=== PATIENT | male | born 1990 | race Caucasian/White ===

== ENCOUNTER 2024-08-01 17:59 | Emergency (ER) | payer OTHER, SELFPAY ==
[2024-08-01 18:11] VITALS: BP 130/67
[2024-08-01 18:38] LABS: % Basophils 0.2 % (0-2); % Immature Granulocytes 0.4 % (0-0.5); % Lymphocytes 6.5 % (20.5-51.1); % Monocytes 4.1 % (1.7-9.3); % Neutrophils 88.8 % (42.2-75.2); Absolute Lymphocytes 0.7 10^3/uL (1.2-3.4); Absolute Monocytes 0.5 10^3/uL (0.1-0.6); Absolute Neutrophils 9.8 10^3/uL (1.4-6.5); Hematocrit 40.5 % (39.0-52.0); Hemoglobin 14.9 g/dL (13.0-18.0); Mean Corp Hgb Conc. 36.8 g/dL (33.0-37.0); Mean Corpuscular Hgb 30.7 pg (27.0-31.0); Mean Corpuscular Volume 83.3 fL (80.0-94.0); Mean Platelet Volume 10.3 fL (7.4-10.4); Nucleated Red Blood Cells % 0 % (-); Platelet Count 152 10^3/uL (130-400); Red Blood Cell Count 4.86 10^6/uL (4.70-6.10); Red Cell Dist. Width 13.2 % (11.5-14.5)
[2024-08-01 18:43] LABS: ALT (SGPT) 30 U/L (0-50); AST (SGOT) 35 U/L (17-59); Albumin 5.1 g/dl (3.5-5.0); Alkaline Phosphatase 62 U/L (38-126); Blood Urea Nitrogen 14 mg/dl (9-20); Calcium 9.4 mg/dl (8.4-10.2); Carbon Dioxide 19 mmol/L (22-30); Chloride 106 mmol/L (98-107); Glucose 171 mg/dl (70-99); Potassium 3.5 mmol/L (3.5-5.1); Sodium 135 mmol/L (135-145); Total Bilirubin 1.1 mg/dl (0.2-1.3); Total Protein 7.4 g/dl (6.3-8.2); eGFR > 60.00
[2024-08-01 18:55] LABS: COVID-19 Antigen Negative (Negative)
[2024-08-01 21:44] VITALS: BP 137/87
[2024-08-01] MEDS: NSS 1000 IV (21:49)
[2024-08-01] MEDS: TYLENOL 1000 MG PO (21:49)
--- NOTE | 2024-08-01 22:43 | ED.GENMED ---
History of Present Illness
General
Chief Complaint: Fever
Time Seen by Provider: 08/01/24 21:53
History of Present Illness
History of Present Illness:
34-year-old male without any significant past medical history presenting to the emergency department for fever, body aches, nausea and vomiting. Patient reports symptoms for the past 3 days. Notes that his son was previously sick at home. He has
been taking OTC medications for his fever, last had medication around 3 PM. Denies any associate abdominal pain. Has had a dry cough. Denies any associated chest pain. Denies changes in stool. Denies additional acute medical complaints
Phy Exam
Physical Exam
Physical Exam:
General: Well-appearing, no clinical signs of dehydration, nontoxic and in no acute distress
HEENT: protecting airway
Neck: appears supple
CV: Normal heart rate, regular rhythm
Resp: No accessory muscle use, no increased work of breathing, lungs clear to auscultation bilaterally
Abd: Soft and non-distended, no tenderness to palpation
Extremities: No deformities, no swelling
Neuro: alert, no focal neurologic deficit
: deferred
Rectal: deferred
Psych: Normal affect
Skin: Intact
Sepsis
Sepsis Screening
Sepsis Assessment: Sepsis Ruled Out
Sepsis Screen
Sepsis Screen: Sepsis Ruled Out
Date: 08/02/24
Time: 03:40
Course
Orders/Labs/Results
Orders:
Orders
08/01/24 18:22
COVID-19 Antigen Urgent
Source: Nasal Swab
Complete Blood Count/With Diff Urgent
Comprehensive Metabolic Panel Urgent
Influenza A+B Rapid Molecular Urgent
KARON Source: Nasal Swab
Specimen Description:
08/01/24 21:47
0.9% Sodium Chloride 1000 ml [Nss] 1,000 ml IV BOLUS
Acetaminophen [Tylenol] 500 mg .[facility]TE [facility]
08/01/24 21:48
Acetaminophen [Tylenol] 1,000 mg PO NOW STA
08/01/24 22:29
Ketorolac [Toradol] 15 mg IV NOW STA
08/01/24 22:30
CR Chest - 2 Views Urgent
Comment:
Reason For Exam: cough and fever
08/01/24 22:31
Add On- LAB Urgent
Tests Added?: RSV
08/01/24 22:48
Respiratory Syncytial Virus Urgent
KARON Source: [employer]
Specimen Description:
08/02/24 00:24
Doxycycline [Vibramycin] 100 mg PO NOW STA
Abnormal Lab Results
08/01/24
18:22
WBC 11.0 H 10^3/uL
(4.8-10.8)
Absolute Neuts (auto) 9.8 H 10^3/uL
(1.4-6.5)
Absolute Lymphs (auto) 0.7 L 10^3/uL
(1.2-3.4)
Neutrophils % 88.8 H %
(42.2-75.2)
Lymphocytes % 6.5 L %
(20.5-51.1)
Carbon Dioxide 19 L mmol/L
(22-30)
Glucose 171 H mg/dl
(70-99)
Albumin 5.1 H g/dl
(3.5-5.0)
08/01/24 18:22
08/01/24 18:22
Vital Signs
Initial and Last Documented VS:
Initial Vital Signs
Temp Pulse Resp BP Pulse Ox
102.8 F H 93 18 130/67 97
08/01/24 18:11 08/01/24 18:11 08/01/24 18:11 08/01/24 18:11 08/01/24 18:11
Last Documented Vital Signs
Temp Pulse Resp BP Pulse Ox
99.8 F 82 17 137/87 97
08/01/24 23:54 08/01/24 23:54 08/01/24 21:46 08/01/24 21:44 08/01/24 23:54
MDM/Problems Addressed
MDM/Problems Addressed:
34-year-old male presenting for fever, nausea, vomiting, body aches. Vital signs on arrival significant for fever.
On exam patient is resting comfortably, no acute distress or discomfort. Patient given Tylenol upon arrival for fever. Patient with active dry cough. Ultimately suspect viral syndrome versus pneumonia. Again well-appearing with lower suspicion
for sepsis. Likely source of infection is patient's son who notes that he was diagnosed with croup. Labs obtained, mild leukocytosis. Will plan for chest x-ray imaging. Negative flu and COVID. Will add on RSV. Treating therapeutically with IV
fluids and Toradol. Will reassess movement. No present respiratory distress, protecting airway.
00:20 -RSV negative. Fever has appropriately reduced. Chest x-ray shows concern for right lower lobe pneumonia. Will start patient on doxycycline for suspected community-acquired. Otherwise feel stable for discharge, hemodynamically stable.
Will provide prescription for antibiotic and steroid. Strict return precautions communicated and patient verbalized understanding
*Critical Care Note
Total Time (30-74mins, 75-104mins- exclusive of procedures): Not Applicable
ED Attending Note
-
Portions of this chart may have been created with voice recognition software.� Occasional wrong word or��sound alike� substitutions may have occurred due to the inherent limitations of voice recognition software.
Discharge Plan
Departure
Patient Disposition: Home (Routine Discharge)
Date of Disposition: 08/02/24
Time of Disposition: 00:29
Patient with high blood pressure during this ER visit?: No
Condition: Good
Discharge Problem:
Community acquired pneumonia, Cough
Instructions: Community-acquired pneumonia in adults, Fever, Adult (DC)
Prescriptions:
New
doxycycline hyclate 100 mg capsule
100 mg PO BID Qty: 14 0RF
methylprednisolone [Medrol (Luis Eduardo)] 4 mg tablets,dose pack
See Rx Instructions .ROUTE .COMPLEX Qty: 21 0RF
Rx Instructions:
for 6 days
ondansetron 4 mg Tablet,Disintegrating
4 mg PO TIDPRN PRN (Reason: nausea/vomiting) Qty: 6 0RF
Referrals:
Karla Patel PA [Family Provider] -
Activity Restrictions/Additional Instructions:
You were seen in the emergency department for cough and fever
You were found to have pneumonia. We started you on an antibiotic and the steroid. Please take as directed.
Please follow-up closely with your primary care physician.
Return to the emergency department for any worsening of your symptoms, or any development of chest pain, difficulty breathing, abdominal pain with persistent vomiting and inability to tolerate food or liquid by mouth (concern for dehydration),
weakness, headache or confusion, fever greater than 100.4, or any additional symptoms that are concerning to you.
Thank you for choosing [facility].
Interventions
Interventions:
*Risk Screen - Suicide Last Done: 08/01/24 18:11
*General Assessment Last Done: 08/01/24 18:11
*Neglect/Abuse Screening Last Done: 08/01/24 21:57
*ED- Fall Risk Assessment Last Done: 08/01/24 21:57
*ED COVID-19 Vaccine History Last Done: 08/01/24 21:57
*Nursing Disposition Last Done: 08/02/24 00:48
ED- Neurological Assessment Last Done: 08/01/24 21:56
ED-Skin Assessment Last Done: 08/01/24 21:56
Discharge Date and Time
Discharge Date/Time: 08/02/24 00:48
Print Language: [id number]
[2024-08-01] MEDS: TORADOL 15 MG IV (22:45)
[2024-08-02] MEDS: VIBRAMYCIN 100 MG PO (00:42)
== END 2024-08-02 00:48 | disposition home or self-care (01) ==
LOC: EMR 17:59
PROVIDERS: Emergency Medicine; EMERGENCY PHYSICIAN Student in an Organized Health Care Education/Training Program; FAMILY PHYSICIAN Physician Assistant Medical
DX: J18.9 Pneumonia, unspecified organism (principal); Z11.52 Encounter for screening for COVID-19
CPT/HCPCS: 99284; 96374; 96361; 71046; 80053; 85025; 87502; 87807; 87811